=== PATIENT | female | born 1995 | race Caucasian/White ===

== ENCOUNTER 2018-10-02 00:05 | Emergency (ER) | payer BC ==
[2018-10-02 00:15] VITALS: BP 105/67
[2018-10-02] MEDS ORDERED: diphenhydrAMINE 50 MG/ML SDV IVPUSH ONE (00:21)
[2018-10-02] MEDS ORDERED: Metoclopramide 10 MG/2 ML SDV IVPUSH ONE (00:21)
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
[2018-10-02] MEDS ORDERED: Dextrose 5%-0.9% NaCl 1,000 ML IV SCH (00:30)
[2018-10-02] MEDS ORDERED: Ketorolac 30 MG/ML SDV IVPUSH SCH (00:30)
== END 2018-10-02 01:30 | disposition home or self-care (01) ==
LOC: JD.ED 00:05
DX: R51 Headache (principal); R11.2 Nausea with vomiting, unspecified; Z91.010 Allergy to peanuts
CPT/HCPCS: 36415; 80053; 82150; 85007; 85027; 96361; 96374; 96375; 99284; G0480; J1200; J1885; J2765; J7042

== ENCOUNTER 2019-02-12 22:40 | Emergency (ER) | payer BC ==
[2019-02-12 22:46] VITALS: BP 107/63; PULSE 85
[2019-02-12] MEDS ORDERED: Metoclopramide 10 MG/2 ML SDV IVPUSH ONE (22:54)
[2019-02-12] MEDS ORDERED: Dextrose 5%-0.9% NaCl 1,000 ML IV SCH (23:00)
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
== END 2019-02-13 00:05 | disposition home or self-care (01) ==
LOC: JD.ED 22:40
DX: F10.120 Alcohol abuse with intoxication, uncomplicated (principal); Z91.010 Allergy to peanuts
CPT/HCPCS: 36415; 80053; 80306; 80320; 82150; 83735; 84703; 85025; 96361; 96374; 99284; J2765; J7042; G0480

== ENCOUNTER 2019-04-25 03:31 | Emergency (ER) | payer BC ==
[2019-04-25 03:39] VITALS: BP 111/69; PULSE 84
[2019-04-25] MEDS ORDERED: Ondansetron 4 MG/2 ML SDV IVPUSH ONE (03:58)
[2019-04-25] MEDS ORDERED: HYDROmorphone 0.5 MG/0.5 ML Syringe IVPUSH ONE (03:59)
[2019-04-25] MEDS ORDERED: Sodium Chloride 0.9% 1,000 ML IV SCH (04:00)
--- NOTE | 2019-04-25 04:07 | EDM.PDOC ---
ED HPI GENERAL MEDICAL PROBLEM - General Chief Complaint: Abdominal Pain Stated Complaint: ABDOMINAL PAIN Time Seen by Provider: 04/25/19 03:41 Source of Information: Reports: Patient, Significant Other (Boyfriend) History Limitations: Reports: No Limitations - History of Present Illness INITIAL COMMENTS - FREE TEXT/NARRATIVE: Ms. Interiano is a pleasant 23-year-old woman with a past medical history significant for untreated anxiety and depression, who states that she woke with sudden-onset central abdominal pain, just prior to coming to the ED. She describes the pain as sharp and stabbing in character. It comes and goes, lasting a few minutes, but recurring after a few seconds of relief. She states that her pain was made worse by bumps in the road en route to the ED. She has not had any associated fever, nausea, vomiting, constipation, diarrhea, or urinary symptoms. No vaginal bleeding. She states that she has abdominal pain fairly often, but nothing like this, previously. She did not take any over-the- counter or home remedies prior to coming to the ED. She denies recent illness, such as fever, chills, cough, dyspnea, chest pain, palpitations, nausea, vomiting, constipation, diarrhea, urinary symptoms, recent weight gain or weight loss, recent bloody bowel movements or black bowel movements, recent joint aches, headaches, or rashes. The patient's boyfriend mentioned that the patient stopped taking her control pills about 2 months ago. The patient states that she is not trying to get , but she is sexually active. Her usual cycle is 30 days. LMP 2018. G1 Ab1. The patient does not have a PCP. She has not received an influenza vaccine this season, and declined an offer for one here. Middle Abdomen Pain Score (Numeric/FACES): 9 - Related Data Allergies Allergy/AdvReac Type Severity Reaction Status Date / Time peanut Allergy Wheezing Verified 04/25/19 03:38 Home Meds: Home Meds . [No Known Home Meds] 02/12/19 [History] Past Medical History HEENT History: Reports: Impaired Vision Other HEENT History: wears glasses [employer]ES History: Reports: , Spontaneous : 1 Psychiatric History: Reports: Anxiety (untreated), Depression (untreated) - Past Surgical History HEENT Surgical History: Reports: None Social & Family History - Tobacco Use Smoking Status *Q: Former Smoker Years of Tobacco use: 8 Packs/Tins Daily: 0.5 Month/Year Tobacco Last Used: Quit Dec 2018 - Caffeine Use Caffeine Use: Reports: None - Alcohol Use Alcohol Use History: Yes Alcohol Use Frequency: Socially (occasionally to excess) - Recreational Drug Use Recreational Drug Use: Yes Drug Use in Last 12 Months: No Recreational Drug Type: Reports: LSD (Acid) (last tried 2016), Marijuana/ Hashish (last smoked 2016) - Living Situation & Occupation Living situation: Reports: Single, with Significant Other (Boyfriend) Occupation: Unemployed ED ROS GENERAL - Review of Systems Review Of Systems: Comprehensive ROS is negative, except as noted in HPI. ED EXAM, GI/ABD - Physical Exam Exam: See Below Exam Limited By: No Limitations General Appearance: Alert, WD/WN, Mild Distress (appears uncomfortable) Eyes: Bilateral: Normal Appearance, EOMI Ears: Normal External Exam, Hearing Grossly Normal Nose: Normal Inspection Throat/Mouth: Normal Inspection, Normal Lips, Normal Voice, No Airway Compromise Head: Atraumatic, Normocephalic Neck: Normal Inspection, Full Range of Motion Respiratory/Chest: No Respiratory Distress, Lungs Clear, Normal Breath Sounds, No Accessory Muscle Use Cardiovascular: Normal Peripheral Pulses, Regular Rate, Rhythm, No Edema, No Gallop, No JVD, No Murmur, No Rub GI/Abdominal Exam: Normal Bowel Sounds, Soft, No Organomegaly, No Distention, No Abnormal Bruit, No Mass, Tender (Central abdomen only, nontender around the periphery, including suprapubic/pelvis) (Female) Exam: Deferred Rectal (Female) Exam: Deferred Back Exam: Normal Inspection, Full Range of Motion. No: CVA Tenderness (L), CVA Tenderness (R) Extremities: Normal Inspection, Normal Range of Motion, No Pedal Edema, Normal Capillary Refill Neurological: Alert, Oriented, Normal Cognition, No Motor/Sensory Deficits Psychiatric: Normal Affect Skin Exam: Warm, Dry, Intact, Normal Color, No Rash Course - Vital Signs Last Recorded V/S: Last Vital Signs Temp 36.3 C 04/25/19 03:36 Pulse 84 04/25/19 03:36 Resp 17 04/25/19 03:36 BP 111/69 04/25/19 03:36 Pulse Ox 99 04/25/19 03:36 - Orders/Labs/Meds Orders: Active Orders 24 hr Category Date Time Status Abdomen Pelvis w Cont [CT] Stat Exams 04/25/19 03:58 Taken Sodium Chloride 0.9% [Normal Saline] 1,000 ml Med 04/25/19 04:00 Active IV ASDIRECTED Medication Orders Sodium Chloride (Normal Saline) 1,000 mls @ 150 mls/hr IV ASDIRECTED CHANDA Last Admin: 04/25/19 04:09 Dose: 150 mls/hr Labs: Laboratory Tests 04/25/19 04/25/19 04/25/19 Range/Units 04:05 04:05 04:05 WBC 7.76 (3.98-10.04) K/mm3 RBC 5.00 (3.98-5.22) M/mm3 Hgb 15.2 D (11.2-15.7) gm/dl Hct 44.5 (34.1-44.9) % MCV 89.0 (79.4-94.8) fl MCH 30.4 (25.6-32.2) pg MCHC 34.2 (32.2-35.5) g/dl RDW Std Deviation 40.9 (36.4-46.3) fL Plt Count 320 (182-369) K/mm3 MPV 10.0 (9.4-12.3) fl Neutrophils % (Manual) 63 H (40-60) % Band Neutrophils % 0 (0-10) % Lymphocytes % (Manual) 31 (20-40) % Atypical Lymphs % 0 % Monocytes % (Manual) 4 (2-10) % Eosinophils % (Manual) 2 (0.7-5.8) % Basophils % (Manual) 0 L (0.1-1.2) Platelet Estimate Adequate RBC Morph Comment Normal Sodium 141 (136-145) mEq/L Potassium 3.9 (3.5-5.1) mEq/L Chloride 103 (98-107) mEq/L Carbon Dioxide 26 (21-32) mEq/L Anion Gap 15.9 H (5-15) BUN 7 (7-18) mg/dL Creatinine 0.8 (0.55-1.02) mg/dL Est Cr Clr Drug Dosing 91.24 mL/min Estimated GFR (MDRD) > 60 (>60) mL/min BUN/Creatinine Ratio 8.8 L (14-18) Glucose 93 (74-106) mg/dL Calcium 9.3 (8.5-10.1) mg/dL Total Bilirubin 0.5 (0.2-1.0) mg/dL AST 9 L (15-37) U/L ALT 15 (14-59) U/L Alkaline Phosphatase 64 (46-116) U/L Total Protein 8.7 H (6.4-8.2) g/dl Albumin 4.9 (3.4-5.0) g/dl Globulin 3.8 gm/dL Albumin/Globulin Ratio 1.3 (1-2) Lipase 74 (73-393) U/L HCG, Quant 1.0 mIU/mL Meds: Medications Generic Name Dose Route Start Last Admin Trade Name Freq PRN Reason Stop Dose Admin Sodium Chloride 1,000 mls @ 150 mls/hr 04/25/19 04:00 04/25/19 04:09 Normal Saline IV 150 mls/hr ASDIRECTED CHANDA Administration Discontinued Medications Generic Name Dose Route Start Last Admin Trade Name Freq PRN Reason Stop Dose Admin Hydromorphone HCl 0.5 mg 04/25/19 03:59 Dilaudid IVPUSH 04/25/19 04:00 ONETIME ONE Ondansetron HCl 4 mg 04/25/19 03:58 04/25/19 04:09 Zofran IVPUSH 04/25/19 03:59 4 mg ONETIME ONE Administration - Re-Assessments/Exams Free Text/Narrative Re-Assessment/Exam: 04/25/19 04:00 The cause of the patient's sudden-onset central abdominal pain is not immediately clear. She is in the middle of her menstrual cycle, which would strongly suggest that she is experiencing mittelschmerz, but mittelschmerz pain is usually unilateral, not central. Additionally, while the patient complains of some tenderness to palpation of her central abdomen, an exact location cannot be discerned. We discussed the possibility of obtaining a pelvic ultrasound, however, I explained to the patient that a pelvic ultrasound only shows pelvic organs, and nothing else, therefore it does not really rule out intra-abdominal processes. A CT scan may not be able to determine if the patient has an ovarian cyst, but it rules out several medically/surgically important causes of abdominal pain, and is therefore a more useful test from an emergency standpoint. I therefore have to recommend a CT scan, despite the radiation exposure, which the patient agreed to. We will therefore begin by having her drink some oral contrast. The patient's RN will place an IV, and she will receive some IV Dilaudid and IV Zofran. Before we actually proceed with the CT scan, however, I want to make sure that she is not , since she states that she stopped taking her control pill about 2 months ago. 04/25/19 05:01 The patient's CBC is unremarkable. Her CMP is unremarkable. Her lipase is within normal limits at 74. Her quantitative hCG is 1.0. 04/25/19 06:09 CT of the abdomen and pelvis with oral and IV contrast is read by Robbie as "No acute findings." As above, the patient's workup is unremarkable. I suspect that she is suffering from mittelschmerz. I will recommend that she take [id number] ibuprofen as needed for discomfort. Departure - Departure Time of Disposition: 06:14 Disposition: Home, Self-Care 01 Condition: Good Clinical Impression: Mittelschmerz - Discharge Information *PRESCRIPTION DRUG MONITORING PROGRAM REVIEWED*: Not Applicable *COPY OF PRESCRIPTION DRUG MONITORING REPORT IN PATIENT DEVIN: Not Applicable Referrals: PCP,None [Primary Care Provider] - Forms: ED Department Discharge Additional Instructions: You were seen in the emergency room for sudden-onset central abdominal pain. Workup in the ER included blood work and a CT scan of your abdomen and pelvis with oral and IV contrast. Your entire workup was unremarkable. You do not have appendicitis. You do not have pancreatitis. You are not . Based on your history, physical exam, and ER tests, the cause of your pain is most likely mittelschmerz = pain from ovulation. Recommend that you take [id number] ibuprofen, 2-3 tablets (400-600 mg) every 8 hours, with food, as needed for discomfort. If any other problems, please do not hesitate to return to the ER. - My Orders Last 24 Hours: My Active Orders 04/25/19 03:58 Abdomen Pelvis w Cont [CT] Stat 04/25/19 04:00 Sodium Chloride 0.9% [Normal Saline] 1,000 ml IV ASDIRECTED - Assessment/Plan Last 24 Hours: My Active Orders 04/25/19 03:58 Abdomen Pelvis w Cont [CT] Stat 04/25/19 04:00 Sodium Chloride 0.9% [Normal Saline] 1,000 ml IV ASDIRECTED
--- NOTE | 2019-04-25 08:58 | CT ---
CT abdomen and pelvis Technique: Multiple axial sections were obtained from above the dome of the diaphragm inferiorly through the pubic symphysis. Intravenous and oral contrast was utilized. Delayed images were also obtained through the bladder. Comparison: No prior abdominal or pelvic CT exam, previous abdominal x-ray 10/11/15. Findings: Visualized lung bases show nothing acute. Liver contains no focal parenchymal abnormality. Spleen appears within normal limits. Adrenal glands show no nodule. Pancreas is within normal limits. Gallbladder contains no calcified gallstones. Kidneys show symmetric contrast enhancement. No hydronephrosis or mass is seen. Aorta shows no aneurysm. No retroperitoneal adenopathy or mesenteric abnormalities are seen. No pelvic mass or adenopathy is seen. No free fluid is identified. Appendix is felt to be visualized and is normal in size. No free fluid or inflammatory change is appreciated. Delayed images show contrast within the bladder. Bone window settings were reviewed which appear within normal limits for the patient's age. Impression: 1. Nothing acute is appreciated on CT study of the abdomen and pelvis. Diagnostic code #1 This report was dictated in [place] Standard Time I agree with preliminary report from [facility], finalized on 04/25/19, 7:02 AM Central Time
== END 2019-04-25 06:31 | disposition home or self-care (01) ==
LOC: JD.ED 03:31
DX: N94.0 Mittelschmerz (principal); Z87.891 Personal history of nicotine dependence; Z91.010 Allergy to peanuts
CPT/HCPCS: 36415; 74177; 80053; 83690; 84702; 85007; 85027; 96361; 96374; 99284; J2405; J7030; 99283

== ENCOUNTER 2019-06-19 11:32 | Emergency (ER) | payer BC ==
[2019-06-19] MEDS ORDERED: Sodium Chloride 0.9% 10 ML Syringe FLUSH PRN (12:30)
[2019-06-19] MEDS ORDERED: Sodium Chloride 0.9% 1,000 ML IV ONE (12:30)
[2019-06-19] MEDS ORDERED: Ondansetron 4 MG/2 ML SDV IVPUSH ONE (12:30)
[2019-06-19] MEDS ORDERED: Dexamethasone 10 MG/ML SDV IM ONE (12:30)
[2019-06-19] MEDS ORDERED: Ketorolac 30 MG/ML SDV IVPUSH ONE (12:30)
--- NOTE | 2019-06-19 12:39 | EDM.PDOC ---
ED HPI GENERAL MEDICAL PROBLEM - General Chief Complaint: ENT Problem Stated Complaint: HAS MONO, THROAT SWOLLEN SHUT Time Seen by Provider: 06/19/19 12:21 Source of Information: Reports: Patient, RN Notes Reviewed History Limitations: Reports: No Limitations - History of Present Illness INITIAL COMMENTS - FREE TEXT/NARRATIVE: Patient is a 23-year-old female who presents to the ED for the evaluation of a swollen throat. Patient notes that she went to the walk-in clinic last week, and was diagnosed with mono, she states that since then she has been having pain in her throat, having a headache, ear pain, abdominal pain, but she states the pains have been present for the past 3 weeks or so. She feels as if her throat is swelling shut, more within the last 2 days since her diagnosis of mono , and she is having difficulty swallowing due to the pain. She does note she was swabbed for strep and that was negative at the clinic. She states that her boyfriend also had mono around Thanksgiving time, but he has subsequently gotten better. She has been trying to take Tylenol for the pain, this is not been helping much. Patient has a mild temperature at time of triage of 100.2 F , and her heart rate is 114. Patient denies any chance of at today's visit. Treatments IN HOUSE COUNSEL: Reports: Acetaminophen Generalized Pain Score (Numeric/FACES): 10 - Related Data Allergies Allergy/AdvReac Type Severity Reaction Status Date / Time peanut Allergy Wheezing Verified 06/19/19 11:47 Home Meds: Home Meds Hydrocodone/Acetaminophen [Hydrocodone-Acetamin 2.5-108/5] 10 ml PO Q6H #120 solution 06/19/19 [Rx] Past Medical History HEENT History: Reports: Impaired Vision Other HEENT History: wears glasses BRONZE CHASER History: Reports: , Spontaneous Psychiatric History: Reports: Anxiety, Depression Other Psychiatric History: patient was prescribed with wellbutrin but did not take any yet - Infectious Disease History Infectious Disease History: Reports: Mononucleosis Social & Family History - Tobacco Use Smoking Status *Q: Never Smoker - Caffeine Use Caffeine Use: Reports: None - Recreational Drug Use Recreational Drug Use: No - Living Situation & Occupation Living situation: Reports: Single, with Significant Other (Boyfriend) Occupation: Unemployed ED ROS ENT - Review of Systems Review Of Systems: See Below Constitutional: Reports: Fever, Chills HEENT: Reports: Throat Pain, Throat Swelling Respiratory: Denies: Shortness of Breath, Cough Cardiovascular: Denies: Chest Pain GI/Abdominal: Reports: Abdominal Pain (generalized tenderness, worse in RUQ), Nausea. Denies: Diarrhea, Vomiting : Denies: Dysuria Neurological: Reports: Headache ED EXAM, ENT - Physical Exam Exam: See Below Exam Limited By: No Limitations General Appearance: Alert, WD/WN, No Apparent Distress Eye Exam: Bilateral Eye: EOMI, Normal Inspection, PERRL Ears: Normal External Exam, Normal Canal, Hearing Grossly Normal, Normal TMs Nose: Normal Inspection Mouth/Throat: Normal Inspection, Normal Gums, Normal Lips, Normal Teeth, Throat Pain, Tonsillar Erythema (bilateral), Tonsillar Exudates (bilateral white), Tonsillar Swelling (bilateral). No: Drooling, Uvular Deviation, Uvular Edema Head: Atraumatic, Normocephalic Neck: Normal Inspection, Lymphadenopathy (L) (multiple shoddy nodes), Lymphadenopathy (R) (multiple shoddy nodes), Tender Lateral (bialterally with palpation) Respiratory/Chest: No Respiratory Distress, Lungs Clear, Normal Breath Sounds, No Accessory Muscle Use, Chest Non-Tender Cardiovascular: Normal Peripheral Pulses, Regular Rate, Rhythm, No Edema, No Murmur GI/Abdominal: Normal Bowel Sounds, Soft, No Distention, No Mass, Tender (RUQ mainly), Hepatomegaly (mild) Extremities: Normal Inspection, Normal Capillary Refill Neurological: Alert, Oriented, Normal Cognition, No Motor/Sensory Deficits Psychiatric: Normal Affect, Normal Mood Skin: Warm, Dry, Intact, Normal Color, No Rash Course - Vital Signs Last Recorded V/S: Last Vital Signs Temp 100.2 F 06/19/19 11:44 Pulse 115 H 06/19/19 11:44 Resp 16 06/19/19 11:44 BP 111/65 06/19/19 11:44 Pulse Ox 99 06/19/19 11:44 - Orders/Labs/Meds Orders: Active Orders 24 hr Category Date Time Status Peripheral IV Care [RC] . DIRECTED Care 06/19/19 12:30 Ordered Sodium Chloride 0.9% [Saline Flush] Med 06/19/19 12:30 Ordered 10 ml FLUSH ASDIRECTED PRN Peripheral IV Insertion Adult [OM.PC] Stat Oth 06/19/19 12:29 Ordered Medication Orders Sodium Chloride (Saline Flush) 10 ml FLUSH ASDIRECTED PRN PRN Reason: Keep Vein Open Last Admin: 06/19/19 12:35 Dose: 10 ml Labs: Laboratory Tests 06/19/19 06/19/19 Range/Units 12:35 12:35 WBC 13.97 H (3.98-10.04) K/mm3 RBC 4.33 (3.98-5.22) M/mm3 Hgb 12.9 D (11.2-15.7) gm/dl Hct 38.7 (34.1-44.9) % MCV 89.4 (79.4-94.8) fl MCH 29.8 (25.6-32.2) pg MCHC 33.3 (32.2-35.5) g/dl RDW Std Deviation 42.7 (36.4-46.3) fL Plt Count 169 L D (182-369) K/mm3 MPV 9.6 (9.4-12.3) fl Neutrophils % (Manual) 37 L (40-60) % Band Neutrophils % 0 (0-10) % Lymphocytes % (Manual) 48 H (20-40) % Atypical Lymphs % 0 % Monocytes % (Manual) 15 H (2-10) % Eosinophils % (Manual) 0 L (0.7-5.8) % Basophils % (Manual) 0 L (0.1-1.2) Platelet Estimate Adequate Schistocytes 1+ slight RBC Morph Comment Not Reportable Sodium 135 L (136-145) mEq/L Potassium 3.8 (3.5-5.1) mEq/L Chloride 98 (98-107) mEq/L Carbon Dioxide 25 (21-32) mEq/L Anion Gap 15.8 H (5-15) BUN 7 (7-18) mg/dL Creatinine 0.9 (0.55-1.02) mg/dL Est Cr Clr Drug Dosing 84.67 mL/min Estimated GFR (MDRD) > 60 (>60) mL/min BUN/Creatinine Ratio 7.8 L (14-18) Glucose 76 (74-106) mg/dL Calcium 8.6 (8.5-10.1) mg/dL Total Bilirubin 0.9 (0.2-1.0) mg/dL AST 76 H (15-37) U/L ALT 101 H (14-59) U/L Alkaline Phosphatase 97 (46-116) U/L Total Protein 8.0 (6.4-8.2) g/dl Albumin 3.6 (3.4-5.0) g/dl Globulin 4.4 gm/dL Albumin/Globulin Ratio 0.8 L (1-2) Meds: Medications Generic Name Dose Route Start Last Admin Trade Name Freq PRN Reason Stop Dose Admin Sodium Chloride 10 ml 06/19/19 12:30 06/19/19 12:35 Saline Flush FLUSH 10 ml ASDIRECTED PRN Administration Keep Vein Open Discontinued Medications Generic Name Dose Route Start Last Admin Trade Name Freq PRN Reason Stop Dose Admin Dexamethasone 10 mg 06/19/19 13:20 06/19/19 12:48 Dexamethasone IVPUSH 06/19/19 13:21 10 mg ONETIME ONE Administration Sodium Chloride 1,000 mls @ 999 mls/hr 06/19/19 12:30 06/19/19 12:45 Normal Saline IV 06/19/19 13:30 999 mls/hr ONETIME ONE Administration Ketorolac Tromethamine 30 mg 06/19/19 12:30 06/19/19 12:51 Toradol IVPUSH 06/19/19 12:31 30 mg ONETIME ONE Administration Ondansetron HCl 4 mg 06/19/19 12:30 06/19/19 12:46 Zofran IVPUSH 06/19/19 12:31 4 mg ONETIME ONE Administration - Re-Assessments/Exams Free Text/Narrative Re-Assessment/Exam: 06/19/19 12:46 Patient presents to the ED for the evaluation of ongoing throat issues. I did order IV to be placed, some IV fluids, 4 mg Zofran, 30 mg Toradol, and 10 mg dexamethasone for symptomatic management. Imaging was discussed at this time, the patient does not want a CT for further evaluation, as she states that she had one earlier this year, and is aware of the radiation risks. I did go over the pros and cons of this, night I do believe that not going for the CT today is an okay plan, we will see if the patient gets symptomatic relief with the medications, and hopefully discharge home with general recommendations. Labs were also drawn, CBC and CMP for further evaluation. 06/19/19 14:09 Patient was reassessed at bedside, and is having some symptomatic relief, I will discharge her home with some hydrocodone/acetaminophen syrup for further pain management, and have her follow other general recommendations. Departure - Departure Time of Disposition: 14:11 Disposition: Home, Self-Care 01 Condition: Fair Clinical Impression: Pharyngitis due to infectious mononucleosis - Discharge Information *PRESCRIPTION DRUG MONITORING PROGRAM REVIEWED*: Yes *COPY OF PRESCRIPTION DRUG MONITORING REPORT IN PATIENT DEVIN: No Prescriptions: Hydrocodone/Acetaminophen [Hydrocodone-Acetamin 2.5-108/5] 10 ml PO Q6H #120 solution Instructions: Infectious Mononucleosis Referrals: PCP,None [Primary Care Provider] - Forms: ED Department Discharge Additional Instructions: You were evaluated in the ER today regarding your swollen throat. You were given some IV fluids, IV medications for pain, and also IV medications for the swelling in the back your throat. The IV medication for swelling will take up to 4 to 6 hours to provide the greatest benefit. You did have some laboratory evaluation, and also was suggestive of ongoing mononucleosis infection. You were given some oral liquid pain medication to take over the next few days to help provide further pain relief. Please take 10 mL by mouth every 6 hours as needed for further pain relief. Please try to take this as needed only, try to take as little of this as possible As soon as you are able to, please try to switch to [id number] anti- inflammatory medication such as ibuprofen for further pain relief, recommend taking 600 mg every 6 hours. Do not exceed 3200 mg in a 24-hour time span. Please try to stick to a clear liquid diet for the next few days, and advance to bland as tolerated to give your throat time to heal and relieve some of the swelling. Please return to the ER at any time if your symptoms change or worsen. Sepsis Event Note - Evaluation Sepsis Screening Result: Possible Sepsis Risk - Focused Exam Vital Signs: Vital Signs Temp Pulse Resp BP Pulse Ox 06/19/19 11:44 100.2 F 115 H 16 111/65 99 Date Exam was Performed: 06/19/19 Time Exam was Performed: 14:09 - My Orders Last 24 Hours: My Active Orders 06/19/19 12:29 Peripheral IV Insertion Adult [OM.PC] Stat 06/19/19 12:30 Peripheral IV Care [RC] . DIRECTED Sodium Chloride 0.9% [Saline Flush] 10 ml FLUSH ASDIRECTED PRN - Assessment/Plan Last 24 Hours: My Active Orders 06/19/19 12:29 Peripheral IV Insertion Adult [OM.PC] Stat 06/19/19 12:30 Peripheral IV Care [RC] . DIRECTED Sodium Chloride 0.9% [Saline Flush] 10 ml FLUSH ASDIRECTED PRN
[2019-06-19] MEDS ORDERED: Dexamethasone 10 MG/ML SDV IVPUSH ONE (13:20)
[2019-06-19 14:51] VITALS: BP 110/62; PULSE 104
== END 2019-06-19 14:38 | disposition home or self-care (01) ==
LOC: JD.ED 11:32
DX: B27.99 Infectious mononucleosis, unspecified with other complication (principal); J02.9 Acute pharyngitis, unspecified; Z91.010 Allergy to peanuts
CPT/HCPCS: 36415; 80053; 85007; 85027; 96361; 96374; 96375; 99283; J1100; J1885; J2405; J7030

== ENCOUNTER 2019-12-23 01:15 | Emergency (ER) | payer BC ==
[2019-12-23 01:29] VITALS: BP 102/62; PULSE 106
[2019-12-23] MEDS ORDERED: Ondansetron 4 MG/2 ML SDV IVPUSH ONE (01:39)
--- NOTE | 2019-12-23 01:42 | EDM.PDOC ---
ED HPI GENERAL MEDICAL PROBLEM - General Chief Complaint: Drug or Alcohol Abuse Stated Complaint: poss alcohol poisoning Time Seen by Provider: 12/23/19 01:22 Source of Information: Reports: Patient, Family History Limitations: Reports: No Limitations - History of Present Illness INITIAL COMMENTS - FREE TEXT/NARRATIVE: This is a 24-year-old female. She has been drinking since 830 this evening with a last drink about 1 AM. She is got nausea and vomiting and thinks she has alcohol poisoning. She has been drinking beer as well as hard liquor. Her friend brings her here to the ER for evaluation. She is actively gagging and vomiting in the ER. She denies any other acute symptoms. She says she is done this before but apparently she has not learned. She denies any recent fever chills cough or congestion. - Related Data Allergies Allergy/AdvReac Type Severity Reaction Status Date / Time peanut Allergy Wheezing Verified 12/23/19 01:23 Home Meds: Home Meds . 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 Musculoskeletal History: Reports: None Neurological History: Reports: None Psychiatric History: Reports: Anxiety, Depression, Other (See Below) Other Psychiatric History: patient was prescribed with wellbutrin but did not take any yet Endocrine/Metabolic History: Reports: None Hematologic History: Reports: None Immunologic History: Reports: None Oncologic (Cancer) History: Reports: None Dermatologic History: Reports: None - Infectious Disease History Infectious Disease History: Reports: Mononucleosis - Past Surgical History HEENT Surgical History: Reports: None Social & Family History - Caffeine Use Caffeine Use: Reports: None - Recreational Drug Use Recreational Drug Use: No - Living Situation & Occupation Living situation: Reports: Single, with Significant Other (Boyfriend) Occupation: Unemployed ED ROS GENERAL - Review of Systems Review Of Systems: See Below Constitutional: Denies: Fever, Chills HEENT: Reports: No Symptoms Respiratory: Reports: No Symptoms Cardiovascular: Reports: No Symptoms Endocrine: Reports: No Symptoms GI/Abdominal: Reports: Nausea, Vomiting. Denies: Abdominal Pain, Diarrhea : Reports: No Symptoms Musculoskeletal: Reports: No Symptoms Skin: Reports: No Symptoms Neurological: Reports: Weakness Psychiatric: Reports: No Symptoms - Physical Exam Exam: See Below Exam Limited By: Intoxication General Appearance: Alert, WD/WN, Mild Distress, Other (Gagging and mildly vomiting in the ER) Eye Exam: Bilateral Eye: Normal Inspection Ears: Normal External Exam Nose: Normal Inspection Throat/Mouth: Normal Inspection, Normal Lips, No Airway Compromise Head Exam: Normocephalic Neck: Supple Respiratory/Chest: No Respiratory Distress, Lungs Clear, Normal Breath Sounds Cardiovascular: Regular Rate, Rhythm, No Murmur, Tachycardia GI/Abdominal: Soft, Other (Epigastric discomfort noted) Neuro Exam (Abbreviated): Alert, Oriented, CN II-XII Intact, Other (She walked into the ER by herself) Back Exam: Full Range of Motion Extremities: Normal Inspection, Normal Range of Motion Psychiatric: Flat Affect Skin Exam: Warm, Dry Course - Vital Signs Last Recorded V/S: Last Vital Signs Temp 97.4 F 12/23/19 01:24 Pulse 106 H 12/23/19 01:24 Resp 18 12/23/19 01:24 BP 102/62 12/23/19 01:24 Pulse Ox 100 12/23/19 01:24 - Orders/Labs/Meds Orders: Active Orders 24 hr Category Date Time Status Sodium Chloride 0.9% [Normal Saline] 1,000 ml Med 12/23/19 01:45 Active IV ASDIRECTED Medication Orders Sodium Chloride (Normal Saline) 1,000 mls @ 1,000 mls/hr IV ASDIRECTED CHANDA Last Admin: 12/23/19 01:55 Dose: 1,000 mls/hr Documented by: TY Labs: Laboratory Tests 12/23/19 12/23/19 Range/Units 01:50 01:50 HCG, Qual Negative (NEGATIVE) Ethyl Alcohol 0.22 (0.00) gm% Meds: Medications Generic Name Dose Route Start Last Admin Trade Name Freq PRN Reason Stop Dose Admin Sodium Chloride 1,000 mls @ 1,000 mls/hr 12/23/19 01:45 12/23/19 01:55 Normal Saline IV 1,000 mls/hr ASDIRECTED CHANDA Administration Discontinued Medications Generic Name Dose Route Start Last Admin Trade Name Freq PRN Reason Stop Dose Admin Ondansetron HCl 4 mg 12/23/19 01:39 12/23/19 01:55 Zoricardo IVPUSH 12/23/19 01:40 4 mg ONETIME ONE Administration - Re-Assessments/Exams Free Text/Narrative Re-Assessment/Exam: 12/23/19 05:40 Patient is feeling better and she wants to go home. Departure - Departure Time of Disposition: 05:40 Disposition: Home, Self-Care 01 Condition: Fair Clinical Impression: Acute alcohol intoxication Qualifiers: Complication of substance-induced condition: uncomplicated Qualified Code(s): F10.920 - Alcohol use, unspecified with intoxication, uncomplicated Nausea and vomiting Qualifiers: Vomiting type: unspecified Vomiting Intractability: non-intractable Qualified Code(s): R11.2 - Nausea with vomiting, unspecified - Discharge Information *PRESCRIPTION DRUG MONITORING PROGRAM REVIEWED*: Not Applicable *COPY OF PRESCRIPTION DRUG MONITORING REPORT IN PATIENT DEVIN: Not Applicable Instructions: Alcohol Intoxication, [id number] Forms: ED Department Discharge Additional Instructions: Sleep as much as possible today, drink lots of fluids but no alcohol for 48 hours, follow-up with your family doctor as needed or the ER as needed Sepsis Event Note (ED) - Evaluation Sepsis Screening Result: No Definite Risk - Focused Exam Vital Signs: Vital Signs Temp Pulse Resp BP Pulse Ox 12/23/19 01:24 97.4 F 106 H 18 102/62 100 - My Orders Last 24 Hours: My Active Orders 12/23/19 01:45 Sodium Chloride 0.9% [Normal Saline] 1,000 ml IV ASDIRECTED - Assessment/Plan Last 24 Hours: My Active Orders 12/23/19 01:45 Sodium Chloride 0.9% [Normal Saline] 1,000 ml IV ASDIRECTED
[2019-12-23] MEDS ORDERED: Sodium Chloride 0.9% 1,000 ML IV SCH (01:45)
== END 2019-12-23 05:45 | disposition home or self-care (01) ==
LOC: JD.ED 01:15
DX: F10.120 Alcohol abuse with intoxication, uncomplicated (principal); R11.2 Nausea with vomiting, unspecified; Z91.010 Allergy to peanuts; Y90.7 Blood alcohol level of 200-239 mg/100 ml
CPT/HCPCS: 36415; 80307; 84703; 96361; 96374; 99284; J2405; J7030; 99283

== ENCOUNTER 2020-02-10 02:42 | Emergency (ER) | payer OTHER, BC ==
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
[2020-02-10] MEDS ORDERED: Silver Sulfadiazine 1% Crm 50 GM Tube TOP ONE (04:13)
[2020-02-10 06:58] VITALS: BP 99/58; PULSE 87
--- NOTE | 2020-02-10 11:49 | CT ---
CT cervical spine Technique: Multiple axial sections were obtained from above C1 inferiorly to the bottom of T2. Reconstructed sagittal and coronal images were obtained. Comparison: No prior cervical spine imaging is available. Findings: Vertebral body heights and disc spaces are maintained. No fracture is identified. No bony central or bony neural foraminal stenosis is seen. No abnormal subluxation is seen. Impression: 1. Nothing acute is appreciated on CT study of the cervical spine. Diagnostic code #1 I agree with preliminary report issued by Robbie ([facility] report finalized on 02/09 is 20, 4:47 AM SHIELD CLEANER) This report was dictated in MDT
--- NOTE | 2020-02-10 11:49 | CT ---
Head CT Technique: Multiple axial sections through the brain were obtained. Intravenous contrast was not utilized. Comparison: No prior intracranial imaging. Findings: Ventricles along with basal cisterns and sulci over the convexities are within. No abnormal parenchymal densities are seen. No evidence of intracranial hemorrhage. No midline shift or mass-effect is appreciated. Visualized mastoid sinus paranasal sinuses show nothing acute. No acute calvarial abnormality is appreciated. Impression:. 1. Nothing acute is appreciated on noncontrast head CT study. Diagnostic code #1 I agree with preliminary report issued by Robbie ([facility] report finalized on 02/10/20, 4:46 AM/CDT) This report was dictated in MDT
--- NOTE | 2020-02-10 11:49 | CR ---
Chest: 2 views of the chest were obtained. Comparison: No prior chest imaging is available. Heart size and mediastinum are normal. Lungs are clear with no acute parenchymal change. Bony structures are within normal limits for the patient's age. Impression: 1. Nothing acute is appreciated on 2 view chest x-ray. Diagnostic code #1 This report was dictated in MDT
== END 2020-02-10 08:17 | disposition home or self-care (01) ==
LOC: JD.ED 02:42
DX: S16.1XXA Strain of muscle, fascia and tendon at neck level, initial encounter (principal); S20.219A Contusion of unspecified front wall of thorax, initial encounter; S80.01XA Contusion of right knee, initial encounter; T23.212A Burn of second degree of left thumb (nail), initial encounter; F10.120 Alcohol abuse with intoxication, uncomplicated; Z91.010 Allergy to peanuts; Y90.0 Blood alcohol level of less than 20 mg/100 ml; V49.9XXA Car occupant (driver) (passenger) injured in unspecified traffic accident, initial encounter; W22.11XA Striking against or struck by driver side automobile airbag, initial encounter
CPT/HCPCS: 16020; 36415; 70450; 71046; 72125; 80053; 80307; 84703; 85025; 99285; A9270; 99283

== ENCOUNTER 2020-02-11 12:58 | Emergency (ER) | payer BC ==
[2020-02-11 13:22] VITALS: BP 109/71; PULSE 83
[2020-02-11] MEDS ORDERED: Iopamidol 612 MG/ML 100 ML Bottle IVPUSH ONE (14:18)
[2020-02-11] MEDS ORDERED: Sodium Chloride 0.9% 10 ML Syringe FLUSH PRN (14:18)
--- NOTE | 2020-02-11 15:05 | CT ---
CT abdomen and pelvis Technique: Multiple axial sections were obtained from above the dome of the diaphragm inferiorly through the pubic symphysis. Intravenous contrast was utilized. No oral contrast was given. Delayed images were obtained through the abdomen and pelvis. Reconstructed coronal and sagittal images were obtained. Comparison: Prior CT abdomen and pelvis study of 04/25/19. Findings: Visualized lung bases show no focal abnormality. Liver contains no focal parenchymal abnormality. Spleen appears within normal limits. Adrenal glands show no nodule. Kidneys show symmetric contrast enhancement without hydronephrosis or mass. Pancreas appears within normal limits. Aorta shows no aneurysm. Gallbladder is collapsed. Kidneys show symmetric contrast enhancement. No hydronephrosis or mass is appreciated. No free fluid or inflammatory change is appreciated. Appendix is seen and is normal in size delayed images shows contrast excretion from both kidneys. Contrast is noted within the bladder. No contrast extravasation is seen. Bone window settings were reviewed which shows no discrete osseous findings. Impression: 1. Nothing acute is appreciated on CT study of the abdomen and pelvis. No etiology is seen for the patient's hematuria or abdominal pain. Diagnostic code #1 This report was dictated in MDT
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
== END 2020-02-11 16:08 | disposition home or self-care (01) ==
LOC: JD.ED 12:58
DX: R10.817 Generalized abdominal tenderness (principal); Z91.010 Allergy to peanuts
CPT/HCPCS: 36415; 74177; 80053; 81001; 85025; 86140; 99284; Q9967; 99283

== ENCOUNTER 2020-12-20 13:37 | Emergency (ER) | payer BC ==
[2020-12-20 13:54] VITALS: BP 118/88; PULSE 67
--- NOTE | 2020-12-20 14:54 | EDM.PDOCBH ---
ED HPI GENERAL MEDICAL PROBLEM - General Chief Complaint: Behavioral/Psych Stated Complaint: HEART PALPITATIONS /ANXIETY Time Seen by Provider: 12/20/20 13:46 Source of Information: Reports: Patient, RN Notes Reviewed History Limitations: Reports: No Limitations - History of Present Illness INITIAL COMMENTS - FREE TEXT/NARRATIVE: Patient is a 24-year-old female presenting to the emergency department after having a 2-hour episode of palpitations this morning. She reports she awoke with the symptoms and laid in bed for approximately 2 hours. She went to the [place] walk-in clinic and while she was waiting in the waiting room, they resolved. She was sent to the ER for evaluation. She reports that she has had palpitations in the past but is never been evaluated for it. She did report at the time of the incident that she had chest wall tenderness. She has a history of anxiety for which she was previously prescribed BuSpar and Prozac, however she has not taken these for the last 2 to 3 months. She reports that she has been anxious over only having vaginal spotting for the last 2 to 3 days and not having her period yet. She reports that she would like to be on something that she can take immediately for anxiety as opposed to a daily medication. She denies any chest pain or palpitations at this time. She has no significant cardiac history. - Related Data Allergies Allergy/AdvReac Type Severity Reaction Status Date / Time peanut Allergy Severe Wheezing Verified 12/20/20 13:56 Home Meds: Home Meds . 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 - Past Surgical History HEENT Surgical History: Reports: None Social & Family History - Family History Family Medical History: No Pertinent Family History - Tobacco Use Tobacco Use Status *Q: Current Every Day Tobacco User Years of Tobacco use: 7 Packs/Tins Daily: 1 - Caffeine Use Caffeine Use: Reports: Soda, Tea - Recreational Drug Use Recreational Drug Use: No - Living Situation & Occupation Living situation: Reports: Single, with Significant Other (Boyfriend) Occupation: Unemployed ED ROS GENERAL - Review of Systems Review Of Systems: Comprehensive ROS is negative, except as noted in HPI. ED EXAM, BEHAVIORAL HEALTH - Physical Exam Exam: See Below Exam Limited By: No Limitations General Appearance: Alert, WD/WN, No Apparent Distress Respiratory/Chest: No Respiratory Distress, Lungs Clear, Normal Breath Sounds, No Accessory Muscle Use, Chest Non-Tender Cardiovascular: Normal Peripheral Pulses, Regular Rate, Rhythm, No Edema, No Gallop, No JVD, No Murmur, No Rub Extremities: Normal Inspection, Normal Range of Motion, Non-Tender, Normal Capillary Refill, No Pedal Edema Neurological: Alert, Normal Mood/Affect, CN II-XII Intact, Normal Cognition, Normal Gait, Normal Reflexes, No Motor/Sensory Deficits, Oriented x 3 Psychiatric: Alert, Normal Affect, Normal Cognition, Normal Mood, Oriented Skin Exam: Warm, Dry, Intact, Normal color, No rash #1 Interpretation EKG Date: 12/20/20 Time: 14:15 Rhythm: NSR Rate (Beats/Min): 73 [place]: Normal P-Wave: Present QRS: Normal ST-T: Normal QT: Normal COURSE, BEHAVIORAL HEALTH COMP - Course Vital Signs: Last Vital Signs Temp 97.6 F 12/20/20 13:51 Pulse 67 12/20/20 13:51 Resp 20 12/20/20 13:51 BP 118/88 12/20/20 13:51 Pulse Ox 98 12/20/20 13:51 Orders, Labs, Meds: Laboratory Tests 12/20/20 12/20/20 12/20/20 Range/Units 14:06 14:06 14:06 WBC 7.00 (3.98-10.04) K/mm3 RBC 4.59 (3.98-5.22) M/mm3 Hgb 14.4 (11.2-15.7) gm/dl Hct 42.9 (34.1-44.9) % MCV 93.5 (79.4-94.8) fl MCH 31.4 (25.6-32.2) pg MCHC 33.6 (32.2-35.5) g/dl RDW Std Deviation 43.7 (36.4-46.3) fL Plt Count 274 D (182-369) K/mm3 MPV 9.8 (9.4-12.3) fl Neut % (Auto) 66.0 (34.0-71.1) % Lymph % (Auto) 20.3 (19.3-51.7) % [place] % (Auto) 10.9 (4.7-12.5) % Eos % (Auto) 2.0 (0.7-5.8) Baso % (Auto) 0.4 (0.1-1.2) % Neut # (Auto) 4.62 (1.56-6.13) K/mm3 Lymph # (Auto) 1.42 (1.18-3.74) K/mm3 [place] # (Auto) 0.76 H (0.24-0.36) K/mm3 Eos # (Auto) 0.14 (0.04-0.36) K/mm3 Baso # (Auto) 0.03 (0.01-0.08) K/mm3 Sodium 141 (136-145) mEq/L Potassium 4.3 (3.5-5.1) mEq/L Chloride 104 (98-107) mEq/L Carbon Dioxide 28 (21-32) mEq/L Anion Gap 13.3 (5-15) BUN 9 (7-18) mg/dL Creatinine 0.9 (0.55-1.02) mg/dL Est Cr Clr Drug Dosing 83.95 mL/min Estimated GFR (MDRD) > 60 (>60) mL/min BUN/Creatinine Ratio 10.0 L (14-18) Glucose 91 (70-99) mg/dL Calcium 8.7 (8.5-10.1) mg/dL Magnesium 2.1 (1.8-2.4) mg/dL Total Bilirubin 0.3 (0.2-1.0) mg/dL AST 12 L (15-37) U/L ALT 13 L (14-59) U/L Alkaline Phosphatase 54 (46-116) U/L Troponin I < 0.017 (0.00-0.056) ng/mL Total Protein 7.6 (6.4-8.2) g/dl Albumin 4.1 (3.4-5.0) g/dl Globulin 3.5 gm/dL Albumin/Globulin Ratio 1.2 (1-2) HCG, Qual (NEGATIVE) 12/20/20 Range/Units 14:06 WBC (3.98-10.04) K/mm3 RBC (3.98-5.22) M/mm3 Hgb (11.2-15.7) gm/dl Hct (34.1-44.9) % MCV (79.4-94.8) fl MCH (25.6-32.2) pg MCHC (32.2-35.5) g/dl RDW Std Deviation (36.4-46.3) fL Plt Count (182-369) K/mm3 MPV (9.4-12.3) fl Neut % (Auto) (34.0-71.1) % Lymph % (Auto) (19.3-51.7) % [place] % (Auto) (4.7-12.5) % Eos % (Auto) (0.7-5.8) Baso % (Auto) (0.1-1.2) % Neut # (Auto) (1.56-6.13) K/mm3 Lymph # (Auto) (1.18-3.74) K/mm3 [place] # (Auto) (0.24-0.36) K/mm3 Eos # (Auto) (0.04-0.36) K/mm3 Baso # (Auto) (0.01-0.08) K/mm3 Sodium (136-145) mEq/L Potassium (3.5-5.1) mEq/L Chloride (98-107) mEq/L Carbon Dioxide (21-32) mEq/L Anion Gap (5-15) BUN (7-18) mg/dL Creatinine (0.55-1.02) mg/dL Est Cr Clr Drug Dosing mL/min Estimated GFR (MDRD) (>60) mL/min BUN/Creatinine Ratio (14-18) Glucose (70-99) mg/dL Calcium (8.5-10.1) mg/dL Magnesium (1.8-2.4) mg/dL Total Bilirubin (0.2-1.0) mg/dL AST (15-37) U/L ALT (14-59) U/L Alkaline Phosphatase (46-116) U/L Troponin I (0.00-0.056) ng/mL Total Protein (6.4-8.2) g/dl Albumin (3.4-5.0) g/dl Globulin gm/dL Albumin/Globulin Ratio (1-2) HCG, Qual Negative (NEGATIVE) Discharge vs Psych Eval/Treatment:: Patient is a 24-year-old female presenting to the emergency department for evaluation after having an episode of palpitations this morning. She reports it lasted about 2 hours and then resolved. She is had intermittent episodes in the past. States sometimes she will get a couple times a week. I have ordered blood work, and EKG. She is anxious that she could possibly be , therefore I have ordered a serum hCG as well. 12/20/20 14:58 Hematology is grossly unremarkable. EKG shows normal sinus rhythm at 73. Results discussed with patient. Discussed the option of possible hydroxyzine, however she states she has used this in the past and all it does make her want to take a nap. We will discharge her home on a Holter monitor with recommendation to missy mary-up with primary, left lobar, late next week. Discussed return precautions. Discharge instructions as documented. Departure - Departure Time of Disposition: 15:01 Disposition: Home, Self-Care 01 Condition: Good Clinical Impression: Anxiety, Palpitations - Discharge Information Instructions: Palpitations, [id number], Managing Anxiety, Adult Referrals: PCP,None [Primary Care Provider] - Forms: ED Department Discharge Additional Instructions: You were seen in the emergency department today for evaluation after having an episode of palpitations this morning. Work-up included blood work and an EKG. Results of your work-up were found to be normal. test completed today was found to be negative. As we discussed, there are number things that can cause heart palpitations including anxiety, dehydration, caffeine, and alcohol consumption. You been sent home on a 48-hour Holter monitor. Follow the instructions as given to you when it was applied. Schedule follow-up appointment with Tresa Moran late next week. Return to ER as needed for any new or worsening symptoms. Sepsis Event Note (ED) - Evaluation Sepsis Screening Result: No Definite Risk
== END 2020-12-20 15:45 | disposition home or self-care (01) ==
LOC: JD.ED 13:37
DX: F41.9 Anxiety disorder, unspecified (principal); R00.2 Palpitations; Z91.010 Allergy to peanuts; Z72.0 Tobacco use
CPT/HCPCS: 36415; 80053; 83735; 84484; 84703; 85025; 93005; 93010; 93225; 93226; 99283; 99285-25

== ENCOUNTER 2022-05-14 08:54 | Emergency (ER) | payer SELFPAY | END 2022-05-14 09:02 | LOC: JD.ED 08:54 | DX: Z53.21 Procedure and treatment not carried out due to patient leaving prior to being seen by health care provider (principal) ==

== ENCOUNTER 2022-09-19 02:34 | Emergency (ER) | payer SELFPAY ==
[2022-09-19] MEDS ORDERED: Sodium Chloride 0.9% 1,000 ML IV ONE (02:49)
[2022-09-19] MEDS ORDERED: Ketorolac 30 MG/ML SDV IVPUSH ONE (02:50)
[2022-09-19 03:06] LABS: BASOPHILS ABSOLUTE AUTO 0.03 K/mm3 (0.01-0.08); BASOPHILS PERCENT AUTO 0.3 % (0.1-1.2); EOSINOPHILS ABSOLUTE AUTO 0.08 K/mm3 (0.04-0.36); EOSINOPHILS PERCENT AUTO 0.8 (0.7-5.8); HEMATOCRIT 39.1 % (34.1-44.9); HEMOGLOBIN 13.2 gm/dl (11.2-15.7); IMMATURE GRAN ABSOLUTE AUTO 0.02 K/mm3 (0.00-0.10); IMMATURE GRAN PERCENT AUTO 0.2 % (<=1.0); LYMPHOCYTES ABSOLUTE AUTO 1.73 K/mm3 (1.18-3.74); LYMPHOCYTES PERCENT AUTO 17.7 % (19.3-51.7); MEAN CORPUSCULAR HEMOGLOBIN 30.3 pg (25.6-32.2); MEAN CORPUSCULAR HGB CONC 33.8 g/dl (32.2-35.5); MEAN CORPUSCULAR VOLUME 89.9 fl (79.4-94.8); MONOCYTES ABSOLUTE AUTO 0.69 K/mm3 (0.24-0.36); NEUTROPHILS ABSOLUTE AUTO 7.25 K/mm3 (1.56-6.13); PLATELET COUNT,PLT 229 K/mm3 (182-369); RED BLOOD CELL COUNT 4.35 M/mm3 (3.98-5.22)
[2022-09-19 03:18] LABS: APPEARANCE,URINE SLT CLOUDY (Clear); BILIRUBIN,URINE NEGATIVE (Negative); COLOR,URINE YELLOW (Yellow); GLUCOSE,URINE NEGATIVE (Negative); KETONES,URINE NEGATIVE (Negative); LEUKOCYTE ESTERASE,URINE NEGATIVE (Negative); NITRITE,URINE NEGATIVE (Negative); OCCULT BLOOD,URINE NEGATIVE (Negative); PH,URINE 6.5 (5.0-8.0); PROTEIN,URINE NEGATIVE (Negative); UROBILINOGEN,URINE 0.2 (0.2-1.0)
[2022-09-19] MEDS ORDERED: Iopamidol 612 MG/ML 100 ML Bottle IVPUSH ONE (03:23)
[2022-09-19 03:24] LABS: BACTERIA,URINE FEW /hpf (FEW); MUCUS,URINE FEW /hpf (FEW); RBC,URINE 0-5 /hpf (0-5); WBC,URINE 0-5 /hpf (0-5)
[2022-09-19 03:26] LABS: A/G RATIO 1.1 (1-2); ALBUMIN 3.7 g/dl (3.4-5.0); ANION GAP 11.3 (5-15); BILIRUBIN TOTAL 0.3 mg/dL (0.2-1.0); CALCIUM 8.6 mg/dL (8.5-10.1); CREATININE 0.8 mg/dL (0.55-1.02); EST CRCL DRUG DOSING (CG) 92.83 mL/min; POTASSIUM,K 3.3 mEq/L (3.5-5.1); PROTEIN TOTAL,TP 7.1 g/dl (6.4-8.2)
[2022-09-19 03:51] VITALS: BP 100/61; PULSE 66
== END 2022-09-19 03:49 | disposition home or self-care (01) ==
LOC: JD.ED 02:34
DX: R10.84 Generalized abdominal pain (principal); R10.31 Right lower quadrant pain; F17.210 Nicotine dependence, cigarettes, uncomplicated; Z91.010 Allergy to peanuts
CPT/HCPCS: 36415; 80053; 81001; 81025; 82150; 85025; 96361; 96374; 99284; J1885; J7030; 99283

== ENCOUNTER 2025-04-28 13:02 | Emergency (ER) | payer SELFPAY | END 2025-04-28 13:13 | disposition left against medical advice (07) | LOC: JD.ED 13:02 | DX: Z53.21 Procedure and treatment not carried out due to patient leaving prior to being seen by health care provider (principal) ==